=== PATIENT | male | born 1965 | race Caucasian/White ===

== ENCOUNTER 2017-04-24 08:00 | Outpatient (RCR) | payer BC ==
[~2017-04-24 08:00] MED LIST: ASPIRIN 32325 MG/TAB PO; FISH OIL1 POW PO; GLUCOSAMINE & C1 CAP PO; METAMUCIL1 PDR PO; MULTIVITAMIN PO
== END 2017-06-25 ==
LOC: WSOT
DX: M79.642 Pain in left hand (principal); M79.645 Pain in left finger(s)